=== PATIENT | female | born 1965 | race Caucasian/White ===

== ENCOUNTER 2017-05-24 08:57 | Emergency (ER) | payer OTHER ==
[~2017-05-24] VITALS: Ht 160 cm; Wt 60.0 kg
[~2017-05-24 08:57] MED LIST: ALBU17I INH; ALBU2.5I NEB; ALLE24TA PO; ALPR0.5T99 PO; ATOR40TA49 PO; CARI1TAB34 PO; METO25 PO; OXYC-360 PO; PROT40TA PO; SENN1TAB11 PO; VENTAER INH; ZYBA150T PO
[2017-05-24 09:05] VITALS: BP 153/114; PULSE 81; RESP 18; TEMP 97.8; O2SAT 97
[2017-05-24] MEDS ORDERED: PANT40TA3 PO (09:12)
[2017-05-24] MEDS ORDERED: XANA1TAB2 PO (09:12)
[2017-05-24] MEDS ORDERED: OXYC1CAP PO (09:12)
[2017-05-24] MEDS ORDERED: VENTAER INH (09:12)
[2017-05-24] MEDS ORDERED: BUPR100CR PO (09:12)
[2017-05-24] MEDS ORDERED: LORazepam 2 MG/ML VIAL IM ONE (09:30)
[2017-05-24] MEDS ORDERED: HALOPERIDOL LACTATE 5 MG/ML AMP IM ONE (09:30)
--- NOTE | 2017-05-24 09:37 | PD ---
HPI Chief Complaint: Psychiatric Symptoms Time Seen by Provider: 09:17 Travel History International Travel<30 days: No Contact w/Intl Traveler<30days: No Traveled to known affect area: No History of Present Illness HPI This patient is brought in by [employer] under [employer] act. She made some suicidal statements to acquaintance over the phone. Patient reports that she has bipolar disorder but doesn't treat it. She is on no psychiatric medication. She says that she used to be on hydrocodone and Xanax but in the middle of March she stopped being able to afford them so has not had them for about 6 weeks. She has chronic back pain. She denies injury or fever or urinary symptoms. Severity is moderate. Duration of her depression is one month. No alleviating factors. Her pain exacerbates her depression. PFSH Past Medical History Arthritis: No Asthma: No Bipolar Disorder: Yes Anxiety: Yes Depression: Yes Cancer: No COPD: Yes Diminished Hearing: No Endocrine: No Gastrointestinal Disorders: Yes (POLYPS ) GERD: No Genitourinary: No Hiatal Hernia: No Immune Disorder: No Musculoskeletal: Yes (CHRONIC BACK PAIN) Neurologic: No Psychiatric: Yes Respiratory: Yes (COPD) Sleep Apnea: No Ulcer: No Tetanus Vaccination: > 5 Years Influenza Vaccination: Yes ?: Not Past Surgical History Abdominal Surgery: No Cardiac Surgery: No Ear Surgery: No Endocrine Surgery: No Eye Surgery: Yes (BILATERAL CATARACT) Genitourinary Surgery: No Gynecologic Surgery: Yes Hysterectomy: Yes Oral Surgery: No Thoracic Surgery: No Other Surgery: Yes Social History Alcohol Use: No (OCC ) Tobacco Use: No (quit 6 MONTHS AGO) Substance Use: No Allergies-Medications (Allergen,Severity, Reaction): Coded Allergies: penicillin G (Verified Allergy, Severe, Hives, 05/24/17) morphine (Verified Allergy, Intermediate, HIVES, 05/24/17) Reported Meds & Prescriptions Reported Meds & Active Scripts Active Reported Ventolin Hfa 18 GM Inh (Albuterol Sulfate) 90 Mcg/Act Aer 2 Puff INH Q4-6H PRN Pantoprazole (Pantoprazole Sodium) 40 Mg Tab 40 Mg PO DAILY Wellbutrin SR 12 HR (Bupropion HCl) 100 Mg Tab 100 Mg PO Q12HR Xanax (Alprazolam) 1 Mg Tab 1 Mg PO Q8H PRN Oxycodone (Oxycodone HCl) 5 Mg Cap 5 Mg PO Q6H PRN Review of Systems General / Constitutional: No: Fever Eyes: No: Visual changes HENT: No: Headaches Cardiovascular: No: Chest Pain or Discomfort Respiratory: No: Shortness of Breath Gastrointestinal: No: Abdominal Pain Genitourinary: No: Dysuria Musculoskeletal: Positive: Pain Skin: No Rash Neurologic: No: Weakness Psychiatric: Positive: Anxiety, Depression, Suicidal Ideations, Disorder of Thought, Mood Disorder Endocrine: No: Polydipsia Hematologic/Lymphatic: No: Easy Bruising Physical Exam Narrative GENERAL: Disheveled tearful well-developed patient who felt suicidal SKIN: Focused skin assessment reveals no rash and nodules. Skin is Warm and dry. HEAD: Atraumatic. Normocephalic. EYES: Pupils equal and round. No scleral icterus. No injection or drainage. ENT: No nasal bleeding or discharge. Mucous membranes pink and moist. NECK: Trachea midline. No JVD. CARDIOVASCULAR: Regular rate and rhythm. No murmur appreciated. RESPIRATORY: No accessory muscle use. Clear to auscultation. Breath sounds equal bilaterally. GASTROINTESTINAL: Abdomen soft, non-tender, nondistended. Hepatic and splenic margins not palpable. MUSCULOSKELETAL: No obvious deformities. No clubbing. No cyanosis. No edema. Anywhere I lightly touch on her back she jerks away and hollers. Makes accurate examination difficult. NEUROLOGICAL: Awake and alert. No obvious cranial nerve deficits. Motor grossly within normal limits. Normal speech. PSYCHIATRIC: Depressed and anxious mood and affect; insight and judgment poor. Data Data Last Documented VS Vital Signs Date Time Temp Pulse Resp B/P (MAP) Pulse Ox O2 Delivery O2 Flow Rate FiO2 05/24/17 15:00 97.8 81 17 140/86 (104) 98 Room Air Orders Orders Complete Blood Count With Diff (05/24/17 09:27) Basic Metabolic Panel (Bmp) (05/24/17 09:27) Thyroid Stimulating Hormone (05/24/17 09:27) Psych Screen (05/24/17 09:27) Haloperidol Inj (Haldol Inj) (05/24/17 09:30) Lorazepam Inj (Ativan Inj) (05/24/17 09:30) Drug Screen, Random Urine (05/24/17 09:27) Alcohol (Ethanol) (05/24/17 09:27) Labs Laboratory Tests Test 05/24/17 09:30 White Blood Count 6.5 TH/MM3 Red Blood Count 4.81 MIL/MM3 Hemoglobin 15.5 GM/DL Hematocrit 43.6 % Mean Corpuscular Volume 90.7 FL Mean Corpuscular Hemoglobin 32.1 PG Mean Corpuscular Hemoglobin Concent 35.4 % Red Cell Distribution Width 13.2 % Platelet Count 338 TH/MM3 Mean Platelet Volume 7.9 FL Neutrophils (%) (Auto) 70.9 % Lymphocytes (%) (Auto) 19.2 % Monocytes (%) (Auto) 8.1 % Eosinophils (%) (Auto) 1.0 % Basophils (%) (Auto) 0.8 % Neutrophils # (Auto) 4.6 TH/MM3 Lymphocytes # (Auto) 1.2 TH/MM3 Monocytes # (Auto) 0.5 TH/MM3 Eosinophils # (Auto) 0.1 TH/MM3 Basophils # (Auto) 0.0 TH/MM3 CBC Comment DIFF FINAL Differential Comment Blood Urea Nitrogen 5 MG/DL Creatinine 0.52 MG/DL Random Glucose 159 MG/DL Calcium Level 9.6 MG/DL Sodium Level 134 MEQ/L Potassium Level 3.5 MEQ/L Chloride Level 102 MEQ/L Carbon Dioxide Level 22.6 MEQ/L Anion Gap 9 MEQ/L Estimat Glomerular Filtration Rate 123 ML/MIN Thyroid Stimulating Hormone 3rd Gen 0.792 uIU/ML Urine Opiates Screen NEG Urine Barbiturates Screen NEG Urine Amphetamines Screen NEG Urine Benzodiazepines Screen NEG Urine Cocaine Screen NEG Urine Cannabinoids Screen NEG Ethyl Alcohol Level LESS THAN 3 MG/DL MDM Medical Decision Making Medical Screen Exam Complete: Yes Emergency Medical Condition: Yes Medical Record Reviewed: Yes Differential Diagnosis Suicidal ideation, depression, adjustment disorder, bipolar exacerbation Narrative Course I have reviewed the patient's electronic medical record. Patient is very challenging to evaluate. She is not cooperative with questions and resistant to exam. I've ordered a medical clearance workup as well as psychiatric evaluation given her [employer] act. I gave her injection of Ativan and Haldol; she is flailing about and it'll be very challenging to get anything done. CBC is normal Metabolic profile is normal TSH is normal Alcohol is negative Tox screen is negative Upon recheck she is resting comfortably and not having back pain She is awaiting psych evaluation but medically stable as can be made Diagnosis Primary Impression: Depression with suicidal ideation Additional Impression: Chronic back pain Qualified Codes: M54.5 - Low back pain; G89.29 - Other chronic pain Medardo Thomson MD May 24, 2017 09:37
[2017-05-24 09:51] LABS: AUTOMATED NEUTROPHIL # 4.6 TH/MM3 (1.8-7.7); BASOPHIL % 0.8 % (0.0-2.0); EOSINOPHIL # 0.1 TH/MM3 (0-0.4); HEMATOCRIT 43.6 % (35.0-46.0); HEMO FLAGS DIFF FINAL; LYMPH % 19.2 % (9.0-44.0); LYMPHOCYTE # 1.2 TH/MM3 (1.0-4.8); MEAN CELL VOLUME 90.7 FL (80.0-100.0); MEAN CORPUSCULAR HEMOGLOBIN 32.1 PG (27.0-34.0); MEAN CORPUSCULAR HGB CONC 35.4 % (32.0-36.0); MONO % 8.1 % (0.0-8.0); NEUT % 70.9 % (16.0-70.0); PLATELET COUNT 338 TH/MM3 (150-450); RED BLOOD COUNT 4.81 MIL/MM3 (4.00-5.30); RED CELL DISTRIBUTION WIDTH 13.2 % (11.6-17.2); WHITE BLOOD COUNT 6.5 TH/MM3 (4.0-11.0)
[2017-05-24 10:10] LABS: ANION GAP 9 MEQ/L (5-15); BICARBONATE 22.6 MEQ/L (21.0-32.0); BLOOD UREA NITROGEN 5 MG/DL (7-18); CHLORIDE 102 MEQ/L (98-107); GLOMERULAR FILTRATION RATE 123 ML/MIN (>89); POTASSIUM 3.5 MEQ/L (3.5-5.1); SODIUM (NA) 134 MEQ/L (136-145)
[2017-05-24 10:21] LABS: ALCOHOL LESS THAN 3 MG/DL (0-5)
[2017-05-24 11:00] VITALS: BP 147/82; PULSE 76; RESP 17; TEMP 97.8; O2SAT 98
[2017-05-24 15:00] VITALS: BP 140/86; PULSE 81; RESP 17; TEMP 97.8; O2SAT 98
[2017-05-24 17:30] VITALS: BP 150/83; PULSE 79; RESP 18; TEMP 97.9; O2SAT 98
[2017-05-25] VITALS (8 sets, daily range): BP systolic 106–146; BP diastolic 57–101; PULSE 84–113; RESP 16–24; TEMP 97.5–98.8; O2SAT 87–98
[2017-05-25] MEDS ORDERED: diphenhydrAMINE HCL 50 MG CAP PO ONE (00:45)
[2017-05-25] MEDS: ACETAMINOPHEN 500 MG CPLT PO ONE ×2 (00:45→04:45)
--- NOTE | 2017-05-25 17:56 | PD ---
Physical Exam Date Seen by Provider: May 25, 2017 Time Seen by Provider: 17:56 Data Data Last Documented VS Vital Signs Date Time Temp Pulse Resp B/P (MAP) Pulse Ox O2 Delivery O2 Flow Rate FiO2 05/25/17 18:00 84 16 133/68 (89) Room Air 05/25/17 06:51 98.4 98 Orders Orders Complete Blood Count With Diff (05/24/17 09:27) Basic Metabolic Panel (Bmp) (05/24/17 09:27) Thyroid Stimulating Hormone (05/24/17 09:27) Psych Screen (05/24/17 09:27) Haloperidol Inj (Haldol Inj) (05/24/17 09:30) Lorazepam Inj (Ativan Inj) (05/24/17 09:30) Drug Screen, Random Urine (05/24/17 09:27) Alcohol (Ethanol) (05/24/17 09:27) Diet Regular Basic (05/24/17 Dinner) Acetaminophen (Tylenol) (05/25/17 00:45) Diphenhydramine (Benadryl) (05/25/17 00:45) Diet Regular Basic (05/25/17 Breakfast) Diet Regular Basic (05/25/17 Lunch) Diet Regular Basic (05/25/17 Dinner) Albuterol Hfa Inh (Proair Hfa Inh) (05/25/17 18:00) Bupropion (Wellbutrin) (05/25/17 18:00) Alprazolam (Xanax) (05/25/17 18:00) Pantoprazole (Protonix) (05/25/17 18:00) Trazodone (Desyrel) (05/25/17 21:00) Labs Laboratory Tests Test 05/24/17 09:30 White Blood Count 6.5 TH/MM3 Red Blood Count 4.81 MIL/MM3 Hemoglobin 15.5 GM/DL Hematocrit 43.6 % Mean Corpuscular Volume 90.7 FL Mean Corpuscular Hemoglobin 32.1 PG Mean Corpuscular Hemoglobin Concent 35.4 % Red Cell Distribution Width 13.2 % Platelet Count 338 TH/MM3 Mean Platelet Volume 7.9 FL Neutrophils (%) (Auto) 70.9 % Lymphocytes (%) (Auto) 19.2 % Monocytes (%) (Auto) 8.1 % Eosinophils (%) (Auto) 1.0 % Basophils (%) (Auto) 0.8 % Neutrophils # (Auto) 4.6 TH/MM3 Lymphocytes # (Auto) 1.2 TH/MM3 Monocytes # (Auto) 0.5 TH/MM3 Eosinophils # (Auto) 0.1 TH/MM3 Basophils # (Auto) 0.0 TH/MM3 CBC Comment DIFF FINAL Differential Comment Blood Urea Nitrogen 5 MG/DL Creatinine 0.52 MG/DL Random Glucose 159 MG/DL Calcium Level 9.6 MG/DL Sodium Level 134 MEQ/L Potassium Level 3.5 MEQ/L Chloride Level 102 MEQ/L Carbon Dioxide Level 22.6 MEQ/L Anion Gap 9 MEQ/L Estimat Glomerular Filtration Rate 123 ML/MIN Thyroid Stimulating Hormone 3rd Gen 0.792 uIU/ML Urine Opiates Screen NEG Urine Barbiturates Screen NEG Urine Amphetamines Screen NEG Urine Benzodiazepines Screen NEG Urine Cocaine Screen NEG Urine Cannabinoids Screen NEG Ethyl Alcohol Level LESS THAN 3 MG/DL MDM Supervised Visit with ALEKSANDR: No Narrative Course 51 YO F brought in to the ED under [employer] act and medically cleared by Dr. Thomson, awaiting psychiatric evaluation. On my evaluation the patient is asking for her daily medications. She complains of shortness of breath, states that she uses a patellar inhaler couple times a day. Also complains of increasing anxiety. GENERAL: Well-nourished, well-developed white female in no acute distress. SKIN: Focused skin assessment warm/dry. HEAD: Normocephalic. EYES: No scleral icterus. No injection or drainage. NECK: Supple, trachea midline. No JVD or lymphadenopathy. CARDIOVASCULAR: Regular rate and rhythm without murmurs, gallops, or rubs. RESPIRATORY: Breath sounds coarse and equal bilaterally. No accessory muscle use. GASTROINTESTINAL: Abdomen soft, non-tender, nondistended. MUSCULOSKELETAL: No cyanosis, or edema. BACK: Nontender without obvious deformity. No CVA tenderness. Patient was administered Wellbutrin, Xanax, trazodone, pro-air inhaler 2 puffs every 6. She is awaiting psychiatric evaluation. Diagnosis Primary Impression: Depression with suicidal ideation Additional Impression: Chronic back pain Qualified Codes: M54.5 - Low back pain; G89.29 - Other chronic pain Tessie Burroughs May 25, 2017 17:56
[2017-05-25] MEDS ORDERED: ALPRAZolam 1 MG TAB PO ONE (18:00)
[2017-05-25] MEDS ORDERED: buPROPion HCL 100 MG TAB PO ONE (18:00)
[2017-05-25] MEDS ORDERED: PANTOPRAZOLE SOD 40 MG DELAYED RELEASE TAB PO ONE (18:00)
[2017-05-25] MEDS: ALBUTEROL SULFATE 90 MCG/ACT HFA 8 GM INHALER INH SCH (18:26)
[2017-05-25] MEDS ORDERED: traZODone HCL 50 MG TAB PO SCH (21:00)
[2017-05-25] MEDS: RESP: ALBUTEROL 2.5 MG/IPRATROPIUM 0.5 MG NEB (SCH) INH ×2 (22:30→22:45)
[2017-05-25] MEDS ORDERED: RESP: BUDESONIDE 0.5 MG/2 ML NEB NEB ONE (22:30)
--- NOTE | 2017-05-25 22:36 | PD ---
Physical Exam Date Seen by Provider: May 25, 2017 Time Seen by Provider: 22:35 Narrative Full history and physical examination please see previous provider's notes. I was asked to evaluate patient's complaint of shortness of breath. Her vital signs were assessed and she was tachypneic and her oxygen saturation was noted to be 87%. Data Data Last Documented VS Vital Signs Date Time Temp Pulse Resp B/P (MAP) Pulse Ox O2 Delivery O2 Flow Rate FiO2 05/25/17 23:37 97.5 112 20 111/67 (82) 96 Room Air Orders Orders Complete Blood Count With Diff (05/24/17 09:27) Basic Metabolic Panel (Bmp) (05/24/17 09:27) Thyroid Stimulating Hormone (05/24/17 09:27) Psych Screen (05/24/17 09:27) Haloperidol Inj (Haldol Inj) (05/24/17 09:30) Lorazepam Inj (Ativan Inj) (05/24/17 09:30) Drug Screen, Random Urine (05/24/17 09:27) Alcohol (Ethanol) (05/24/17 09:27) Diet Regular Basic (05/24/17 Dinner) Acetaminophen (Tylenol) (05/25/17 00:45) Diphenhydramine (Benadryl) (05/25/17 00:45) Diet Regular Basic (05/25/17 Breakfast) Diet Regular Basic (05/25/17 Lunch) Diet Regular Basic (05/25/17 Dinner) Albuterol Hfa Inh (Proair Hfa Inh) (05/25/17 18:00) Bupropion (Wellbutrin) (05/25/17 18:00) Alprazolam (Xanax) (05/25/17 18:00) Pantoprazole (Protonix) (05/25/17 18:00) Trazodone (Desyrel) (05/25/17 21:00) Albuterol-Ipratropium Neb (Duoneb Neb) (05/25/17 22:30) Budesonide Neb (Pulmicort Respule Neb) (05/25/17 22:30) Chest, Single Ap (05/25/17 ) Levofloxacin (Levaquin) (05/25/17 23:45) Alprazolam (Xanax) (05/25/17 23:45) Labs Laboratory Tests Test 05/24/17 09:30 White Blood Count 6.5 TH/MM3 Red Blood Count 4.81 MIL/MM3 Hemoglobin 15.5 GM/DL Hematocrit 43.6 % Mean Corpuscular Volume 90.7 FL Mean Corpuscular Hemoglobin 32.1 PG Mean Corpuscular Hemoglobin Concent 35.4 % Red Cell Distribution Width 13.2 % Platelet Count 338 TH/MM3 Mean Platelet Volume 7.9 FL Neutrophils (%) (Auto) 70.9 % Lymphocytes (%) (Auto) 19.2 % Monocytes (%) (Auto) 8.1 % Eosinophils (%) (Auto) 1.0 % Basophils (%) (Auto) 0.8 % Neutrophils # (Auto) 4.6 TH/MM3 Lymphocytes # (Auto) 1.2 TH/MM3 Monocytes # (Auto) 0.5 TH/MM3 Eosinophils # (Auto) 0.1 TH/MM3 Basophils # (Auto) 0.0 TH/MM3 CBC Comment DIFF FINAL Differential Comment Blood Urea Nitrogen 5 MG/DL Creatinine 0.52 MG/DL Random Glucose 159 MG/DL Calcium Level 9.6 MG/DL Sodium Level 134 MEQ/L Potassium Level 3.5 MEQ/L Chloride Level 102 MEQ/L Carbon Dioxide Level 22.6 MEQ/L Anion Gap 9 MEQ/L Estimat Glomerular Filtration Rate 123 ML/MIN Thyroid Stimulating Hormone 3rd Gen 0.792 uIU/ML Urine Opiates Screen NEG Urine Barbiturates Screen NEG Urine Amphetamines Screen NEG Urine Benzodiazepines Screen NEG Urine Cocaine Screen NEG Urine Cannabinoids Screen NEG Ethyl Alcohol Level LESS THAN 3 MG/DL [facility] Medical Record Reviewed: Yes Supervised Visit with ALEKSANDR: No Interpretation(s) Vital Signs Date Time Temp Pulse Resp B/P (MAP) Pulse Ox O2 Delivery O2 Flow Rate FiO2 05/25/17 22:13 98.7 107 19 110/63 (79) 87 Room Air 05/25/17 18:00 84 16 133/68 (89) Room Air 05/25/17 14:30 86 18 114/78 (90) Room Air 05/25/17 12:55 143/90 (107) 05/25/17 11:41 89 24 146/101 (116) 05/25/17 06:51 98.4 93 17 125/74 (91) 98 Room Air 05/25/17 02:16 98.8 113 18 106/57 (73) 95 Room Air 05/24/17 17:30 97.9 79 18 150/83 (105) 98 Room Air 05/24/17 15:00 97.8 81 17 140/86 (104) 98 Room Air 05/24/17 11:00 97.8 76 17 147/82 (103) 98 Room Air 05/24/17 09:05 97.8 81 18 153/114 (127) 97 Narrative Course On initial exam patient was seen resting comfortably in bed in J pod. On exam she was noted to have expiratory wheezing throughout. Chest x-ray, DuoNeb, budesonide nebulizers ordered. Chest x-ray shows acute infiltrate of the left lung base and chronic obesity of the right upper lobe. Oxygen saturation improved after DuoNeb some budesonide. O2 sat is 96% on room air currently. Patient will be given first dose of Levaquin now. A prescription will be written to complete full course of therapy. Patient was given a small dose of Xanax as well because she does appear to be anxious and continues to request to go home. Diagnosis Primary Impression: Depression with suicidal ideation Additional Impressions: Chronic back pain Qualified Codes: M54.5 - Low back pain; G89.29 - Other chronic pain Pneumonia Qualified Codes: J18.1 - Lobar pneumonia, unspecified organism Additional Instruction: Complete full course of antibiotics as prescribed Follow-up with primary doctor Med/Other Pt SpecificInfo: Prescription(s) given Scripts Levofloxacin (Levaquin) 750 Mg Tablet 750 MG PO DAILY for Infection, #6 TAB 0 Refills Prov: Janelle Bates 05/26/17 Condition: Stable Janelle Bates May 25, 2017 22:36
--- NOTE | 2017-05-25 23:16 | RADRPT ---
EXAM DATE/TIME: 05/25/2017 22:54 [place] COMPARISON: No previous studies available for comparison. INDICATIONS : Shortness of breath. MEDICAL HISTORY : None. SURGICAL HISTORY : None. ENCOUNTER: Initial ACUITY: 1 day PAIN SCORE: 0/10 LOCATION: Bilateral chest FINDINGS: There is ill-defined infiltrate in the left lung base. There is also some localized infiltrate of the right upper lobe that appears more chronic. No pleural effusion seen. No pneumothorax. Heart size stable, within normal limits. CONCLUSION: Acute infiltrate of the left lung base and chronic opacity of the right upper lobe. Frankie Mina MD on May 25, 2017 at 23:12 Board Certified Radiologist. This report was verified electronically.
[2017-05-25] MEDS ORDERED: ALPRAZolam 0.25 MG TAB PO ONE (23:45)
[2017-05-25] MEDS ORDERED: LEVOFLOXACIN 750 MG TAB PO ONE (23:45)
[2017-05-26] MEDS ORDERED: LEVA750T9 PO
[2017-05-26] MEDS ORDERED: methylPREDNISolone SOD SUCC 125 MG/2 ML VIAL IM ONE (00:15)
[2017-05-26] MEDS: ALBUTEROL SULFATE 90 MCG/ACT HFA 8 GM INHALER INH SCH ×2 (00:36→06:31)
[2017-05-26] MEDS ORDERED: ACETAMINOPHEN 325 MG TAB PO ONE (05:30)
[2017-05-26 06:24] VITALS: BP 126/66; PULSE 99; RESP 18; TEMP 99.1; O2SAT 99
--- NOTE | 2017-05-26 09:09 | PD ---
Physical Exam Time Seen by Provider: 09:07 Narrative Please refer to previous providers documentation for details surrounding the patient's current visit. Data Data Last Documented VS Vital Signs Date Time Temp Pulse Resp B/P (MAP) Pulse Ox O2 Delivery O2 Flow Rate FiO2 05/26/17 06:24 99.1 99 18 126/66 (86) 99 Room Air Orders Orders Complete Blood Count With Diff (05/24/17 09:27) Basic Metabolic Panel (Bmp) (05/24/17 09:27) Thyroid Stimulating Hormone (05/24/17 09:27) Psych Screen (05/24/17 09:27) Haloperidol Inj (Haldol Inj) (05/24/17 09:30) Lorazepam Inj (Ativan Inj) (05/24/17 09:30) Drug Screen, Random Urine (05/24/17 09:27) Alcohol (Ethanol) (05/24/17 09:27) Diet Regular Basic (05/24/17 Dinner) Acetaminophen (Tylenol) (05/25/17 00:45) Diphenhydramine (Benadryl) (05/25/17 00:45) Diet Regular Basic (05/25/17 Breakfast) Diet Regular Basic (05/25/17 Lunch) Diet Regular Basic (05/25/17 Dinner) Albuterol Hfa Inh (Proair Hfa Inh) (05/25/17 18:00) Bupropion (Wellbutrin) (05/25/17 18:00) Alprazolam (Xanax) (05/25/17 18:00) Pantoprazole (Protonix) (05/25/17 18:00) Trazodone (Desyrel) (05/25/17 21:00) Albuterol-Ipratropium Neb (Duoneb Neb) (05/25/17 22:30) Budesonide Neb (Pulmicort Respule Neb) (05/25/17 22:30) Chest, Single Ap (05/25/17 ) Levofloxacin (Levaquin) (05/25/17 23:45) Alprazolam (Xanax) (05/25/17 23:45) Methylprednisolone So Succ Inj (Solumedr (05/26/17 00:15) Acetaminophen (Tylenol) (05/26/17 05:30) Diet Regular Basic (05/26/17 Breakfast) Labs Laboratory Tests Test 05/24/17 09:30 White Blood Count 6.5 TH/MM3 Red Blood Count 4.81 MIL/MM3 Hemoglobin 15.5 GM/DL Hematocrit 43.6 % Mean Corpuscular Volume 90.7 FL Mean Corpuscular Hemoglobin 32.1 PG Mean Corpuscular Hemoglobin Concent 35.4 % Red Cell Distribution Width 13.2 % Platelet Count 338 TH/MM3 Mean Platelet Volume 7.9 FL Neutrophils (%) (Auto) 70.9 % Lymphocytes (%) (Auto) 19.2 % Monocytes (%) (Auto) 8.1 % Eosinophils (%) (Auto) 1.0 % Basophils (%) (Auto) 0.8 % Neutrophils # (Auto) 4.6 TH/MM3 Lymphocytes # (Auto) 1.2 TH/MM3 Monocytes # (Auto) 0.5 TH/MM3 Eosinophils # (Auto) 0.1 TH/MM3 Basophils # (Auto) 0.0 TH/MM3 CBC Comment DIFF FINAL Differential Comment Blood Urea Nitrogen 5 MG/DL Creatinine 0.52 MG/DL Random Glucose 159 MG/DL Calcium Level 9.6 MG/DL Sodium Level 134 MEQ/L Potassium Level 3.5 MEQ/L Chloride Level 102 MEQ/L Carbon Dioxide Level 22.6 MEQ/L Anion Gap 9 MEQ/L Estimat Glomerular Filtration Rate 123 ML/MIN Thyroid Stimulating Hormone 3rd Gen 0.792 uIU/ML Urine Opiates Screen NEG Urine Barbiturates Screen NEG Urine Amphetamines Screen NEG Urine Benzodiazepines Screen NEG Urine Cocaine Screen NEG Urine Cannabinoids Screen NEG Ethyl Alcohol Level LESS THAN 3 MG/DL [facility] Medical Record Reviewed: Yes Supervised Visit with ALEKSANDR: No Narrative Course I am contacted by psychiatry that patients [employer] act has been lifted after psychiatric evaluation. Patient will be discharged at this time with no further need for acute medical intervention. Diagnosis Primary Impression: Depression with suicidal ideation Additional Impressions: Chronic back pain Qualified Codes: M54.5 - Low back pain; G89.29 - Other chronic pain Pneumonia Qualified Codes: J18.1 - Lobar pneumonia, unspecified organism Adjustment disorder Qualified Codes: F43.24 - Adjustment disorder with disturbance of conduct Referrals: [facility] (Out patient) Primary Care Physician Patient Instructions: Community Acquired Pneumonia (ED), General Instructions Additional Instruction: Complete full course of antibiotics as prescribed Follow-up with primary doctor Med/Other Pt SpecificInfo: Prescription(s) given Scripts Levofloxacin (Levaquin) 750 Mg Tablet 750 MG PO DAILY for Infection, #6 TAB 0 Refills Prov: Janelle Bates 05/26/17 Disposition: 01 DISCHARGE HOME Condition: Stable Millicent Ng May 26, 2017 09:09
[2017-05-26 09:56] VITALS: BP 126/66; PULSE 99; RESP 18; O2SAT 99
--- NOTE | 2017-05-26 15:55 | PD.PSY.CON ---
Provisional Diagnosis Admission Date [place]. Adjustment disorder with disturbance of conduct History of Present Illness Service Psychiatry Consult Requested By Reason for Consult Suicidal statement Primary Care Physician Unknown HPI The patient is a 51-year-old woman, domiciled alone, is , unemployed, supported by long term benefits, with psychiatric history of depression, bipolar disorder, she is on Wellbutrin 150 mg twice a day, Xanax 1 mg twice a day for anxiety, sclerae by PCP, suicidal attempts, no prior admissions, no significant medical history, patient is brought in by [employer] police under [employer] act. She made some suicidal statements to acquaintance over the phone. She has chronic back pain. Patient says that the reason she says that she wanted to kill her self is because she wanted to manipulate the system after she was denied for opiate prescriptions. At this moment the patient denies suicidal and homicidal ideation, she denies visual and auditory hallucinations. Past Family Social History Coded Allergies: penicillin G (Verified Allergy, Severe, Hives, 05/24/17) morphine (Verified Allergy, Intermediate, HIVES, 05/24/17) Active Scripts Levofloxacin (Levaquin) 750 Mg Tablet, 750 MG PO DAILY for Infection, #6 TAB 0 Refills Prov:Donna Bateschioma MACIEL 05/26/17 Reported Medications Albuterol 18 GM Inh (Ventolin Hfa 18 GM Inh) 90 Mcg/Act Aer, 2 PUFF INH Q4-6H Y for SHORTNESS OF BREATH, #1 INHALER 0 Refills 05/24/17 Pantoprazole (Pantoprazole) 40 Mg Tab, 40 MG PO DAILY for Reflux, #30 TAB 0 Refills 05/24/17 Bupropion HCl ER 12 HR (Wellbutrin SR 12 HR) 100 Mg Tab, 100 MG PO Q12HR for Control Depression, TAB 0 Refills 05/24/17 Alprazolam (Xanax) 1 Mg Tab, 1 MG PO Q8H Y for ANXIETY, TAB 0 Refills 05/24/17 Oxycodone (Oxycodone) 5 Mg Cap, 5 MG PO Q6H Y for PAIN, CAP 0 Refills 05/24/17 Physical Exam Vital Signs Vital Signs Date Time Temp Pulse Resp B/P (MAP) Pulse Ox O2 Delivery O2 Flow Rate FiO2 05/26/17 10:00 05/26/17 09:56 99 18 99 Room Air 05/26/17 06:24 99.1 Mental Status Examination Speech: Unremarkable Orientation: x3 Memory: Unremarkable Thought Process: Logical Thought Content: Unremarkable Hallucination Type: None Suicidal Ideation: No Previous Suicide Attempts: No Homicidal Ideation: No Previous Homicide Attempts: No Judgment: WNL Affect if Inappropriate: Flat Mood: Appropriate Motor Activity: Normal gait Assessment & Plan Problem List: (1) Adjustment disorder with mixed disturbance of emotions and conduct ICD Codes: F43.25 - Adjustment disorder with mixed disturbance of emotions and conduct Assessment & Plan: Patient does not meet criteria for psychiatric admission at this moment. Recent suicidal statement over the phone system with the results of manipulation in order to get opiates prescription. On longitudinal observation in the ER the patient hasn't displayed any aggressive behavior agitation, he has been calm and cooperative. She does not meet criteria for second admission at this moment. Assessment & Plan Estimated LOS: Mario Garnica MD May 26, 2017 15:55
== END 2017-05-26 12:11 | disposition home or self-care (01) ==
LOC: NEPD 08:57 → NEPJ 05-26 12:11
DX: F32.9 Major depressive disorder, single episode, unspecified (principal); R45.851 Suicidal ideations; M54.9 Dorsalgia, unspecified; G89.29 Other chronic pain; F43.20 Adjustment disorder, unspecified; R06.02 Shortness of breath; F41.9 Anxiety disorder, unspecified; F31.9 Bipolar disorder, unspecified; J44.9 Chronic obstructive pulmonary disease, unspecified
CPT/HCPCS: 71010; 80048; 80307; 84443; 85025; 94640; 94664; 96372; 99285; J1630; J2060; J2930; J7626; Q0163